=== PATIENT | female | born 1995 | race African-American/Black ===

== ENCOUNTER 2017-08-19 11:11 | Emergency (ER) | payer BC ==
[~2017-08-19] VITALS: Ht 154.9 cm; Wt 58.1 kg
[2017-08-19 11:15] VITALS: TEMP 36.9; Ht 154.9 cm; Wt 58.1 kg
[2017-08-19] MEDS ORDERED: SODIUM CHLORIDE 0.9% 1000ML 1,000 ML IV STA (11:21)
--- NOTE | 2017-08-19 11:22 | EMERGENCY ROOM VISIT NOTE ---
History Report prepared by [place]on: Valeriano Mendoza Under the Supervision of: Dr. Hudson Morales M.D. First contact with patient: 11:12 Stated Complaint: BACK PAIN History of Present Illness The patient is a 22 year old female who presents to the Emergency Room via EMS with complaints of persistent back pain that started this morning. She states that she thinks she is dehydrated. The patient adds that she does not know when her last bowel movement was. She notes no history of abdominal surgeries, and still has her major abdominal organs. Per the nursing staff, the patient is on control but does not get her period because she takes her control continuously. The patient's mother noted that the patient has had pain like this before, and at that time the patient was constipated. The patient says that her mother knows that she is here, and does not need to be contacted. Source of History: patient, parent, nursing staff Onset: This morning Position: back Symptom Intensity: has had pain like this before Quality: other (thinks she is dehydated) Timing: other (persistent) Note: Associated symptoms: Pt thinks she is dehydrated. Does not know when last bowel movement was. Review of Systems See HPI for pertinent positives & negatives. A total of 10 systems reviewed and were otherwise negative. Past Medical & Surgical Medical Problems: (1) No chronic diseases present Family History No pertinent family history Social History Marital Status: single Housing Status: lives with roommate Occupation Status: [employer] student Current/Historical Medications Scheduled PRN Hydralazine HCl (Hydralazine HCl), 2 TAB PO DIRECTED PRN for Anxiety Allergies Coded Allergies: No Known Allergies (Unverified , 08/19/17) Physical Exam Vital Signs Date Time Temp Pulse Resp B/P (MAP) Pulse Ox O2 Delivery O2 Flow Rate FiO2 08/19/17 13:16 78 18 100/64 100 Room Air 08/19/17 12:38 69 16 100/63 100 Room Air 08/19/17 11:15 36.9 81 16 98/57 98 Room Air Physical Exam GENERAL: Patient is a healthy-appearing well-nourished 22 year old female. HEAD: Normocephalic atraumatic EYES: Ocular movements intact pupils equal and react to light OROPHARYNX mucous membranes are moist no exudates present no erythema or edema present NECK: Supple no nuchal rigidity CHEST: Good equal expansion LUNGS: Clear and equal to auscultation CARDIAC: Normal S1 and S2 ABDOMEN: Soft nontender no guarding BACK: No CVA tenderness EXTREMITIES: No pain upon palpation normal muscle strength in all groups no clubbing cyanosis or edema NEURO: Patient is following commands and answering questions appropriately. Alert and oriented x3 Cranial Nerves 2-12 grossly intact Medical Decision & Procedures ER Provider Diagnostic Interpretation: X-ray results as stated below per interpretation by me and the radiologist: PA CHEST RADIOGRAPH AND UPRIGHT AND SUPINE AP RADIOGRAPHS OF THE ABDOMEN CLINICAL HISTORY: Diffuse abdominal pain. COMPARISON STUDY: No previous studies for comparison. FINDINGS: Lung volumes are normal. Lungs are clear. No pneumothorax or pleural effusion is noted. Cardiac size is normal. Mediastinal contours are normal. There is no free air. Bowel gas pattern is normal. There is a moderate amount of stool within the colon. There is minimal stool within the rectum. IMPRESSION: 1. No free air or evidence of bowel obstruction. 2. Moderate amount of stool within the colon. 3. No acute cardiopulmonary findings. Electronically signed by: Mathew Brown M.D. 08/19/2017 12:20 PM Dictated Date/Time: 08/19/2017 12:20 PM Laboratory Results 08/19/17 11:40 Red Blood Count 4.56, Mean Corpuscular Volume 87.3, Mean Corpuscular Hemoglobin 30.3, Mean Corpuscular Hemoglobin Concent 34.7, Mean Platelet Volume 10.4, Neutrophils (%) (Auto) 63.8, Lymphocytes (%) (Auto) 24.4, Monocytes (%) (Auto) 9.4, Eosinophils (%) (Auto) 1.6, Basophils (%) (Auto) 0.4, Neutrophils # (Auto) 3.28, Lymphocytes # (Auto) 1.25, Monocytes # (Auto) 0.48, Eosinophils # (Auto) 0.08, Basophils # (Auto) 0.02 08/19/17 11:40 Test 08/19/17 11:40 08/19/17 12:30 White Blood Count 5.13 K/uL (4.8-10.8) Red Blood Count 4.56 M/uL (4.2-5.4) Hemoglobin 13.8 g/dL (12.0-16.0) Hematocrit 39.8 % (37-47) Mean Corpuscular Volume 87.3 fL (80-100) Mean Corpuscular Hemoglobin 30.3 pg (25-34) Mean Corpuscular Hemoglobin Concent 34.7 g/dl (32-36) Platelet Count 157 K/uL (130-400) Mean Platelet Volume 10.4 fL (7.4-10.4) Neutrophils (%) (Auto) 63.8 % Lymphocytes (%) (Auto) 24.4 % Monocytes (%) (Auto) 9.4 % Eosinophils (%) (Auto) 1.6 % Basophils (%) (Auto) 0.4 % Neutrophils # (Auto) 3.28 K/uL (1.4-6.5) Lymphocytes # (Auto) 1.25 K/uL (1.2-3.4) Monocytes # (Auto) 0.48 K/uL (0.11-0.59) Eosinophils # (Auto) 0.08 K/uL (0-0.5) Basophils # (Auto) 0.02 K/uL (0-0.2) RDW Standard Deviation 40.4 fL (36.4-46.3) RDW Coefficient of Variation 12.6 % (11.5-14.5) Immature Granulocyte % (Auto) 0.4 % Immature Granulocyte # (Auto) 0.02 K/uL (0.00-0.02) Anion Gap 8.0 mmol/L (3-11) Est Creatinine Clear Calc Drug Dose 100.4 ml/min Estimated GFR () 137.8 Estimated GFR (Non- 118.9 BUN/Creatinine Ratio 12.0 (10-20) Calcium Level 8.9 mg/dl (8.5-10.1) Total Bilirubin 0.3 mg/dl (0.2-1) Direct Bilirubin mg/dl (0-0.2) Aspartate Amino Transf (AST/SGOT) U/L (15-37) Alanine Aminotransferase (ALT/SGPT) 48 U/L (12-78) Alkaline Phosphatase 42 U/L (45-117) Total Protein 7.2 gm/dl (6.4-8.2) Albumin 3.7 gm/dl (3.4-5.0) Thyroid Stimulating Hormone (TSH) 0.651 uIu/ml (0.300-4.500) Urine Color YELLOW Urine Appearance CLEAR (CLEAR) Urine pH 6.5 (4.5-7.5) Urine Specific [place] 1.017 (1.000-1.030) Urine Protein NEG (NEG) Urine Glucose (UA) NEG (NEG) Urine Ketones NEG (NEG) Urine Occult Blood NEG (NEG) Urine Nitrite NEG (NEG) Urine Bilirubin NEG (NEG) Urine Urobilinogen NEG (NEG) Urine Leukocyte Esterase NEG (NEG) Urine Test NEG (NEG) Labs reviewed by ED physician. Medications Administered Medications (Trade) Dose Ordered Sig/[place] Route Start Time Stop Time Status Last Admin Dose Admin Sodium Chloride 1,000 ml @ 999 mls/hr Q1H1M STAT IV 08/19/17 11:21 08/19/17 12:21 DC 08/19/17 11:21 999 MLS/HR Magnesium Citrate (Citrate Of Magnesia Soln) 296 ml NOW STAT PO 08/19/17 13:05 08/19/17 13:06 DC 08/19/17 13:17 296 ML ECG Per My Interpretation Indication: other (dehydration) Rate (beats per minute): 70 Rhythm: normal sinus Findings: other (normal EKG, no ST elevation or depressions) ED Course 1115: Past medical records reviewed. The patient was evaluated in room B10. A complete history and physical examination was performed. 1121: Ordered NSS 1000 ml @ 999 mls/hr IV. 1300: Upon reexamination the patient is resting comfortably. I discussed results and treatment plan with the patient. She verbalizes agreement and understanding. The patient is ready for discharge. 1305: Ordered Citrate of Magnesia Soln 296 ml PO. Medical Decision Differential diagnosis: Etiologies such as musculoskeletal, disc herniation, fracture, aortic disease, metastatic disease, cord compression, discitis, infection, renal colic, gastrointestinal, acute exacerbation of chronic back pain, sciatica, cauda equina, as well as others were entertained. This is a 22-year-old female who presents emergency department complaining of back pain" patient. Serial abdominal examinations were performed of the patient emergency department no tended patient exhibit surgical. In addition the patient has a normal white blood cell count profile liver profile normal lipase. She is not she has no evidence of urinary tract infection and laboratory work. I did offer discussed this patient with her mother however the patient declined given normal saline bolus in the emergency department citrate. Patient was in agreement with the treatment plan. Medication Reconcilliation Current Medication List: was personally reviewed by me Blood Pressure Screening Patient's blood pressure: Normal blood pressure Impression Primary Impression: Constipation Scribe Attestation The scribe's documentation has been prepared under my direction and personally reviewed by me in its entirety. I confirm that the note above accurately reflects all work, treatment, procedures, and medical decision making performed by me. Departure Information Dispostion Home / Self-Care Referrals [facility] Forms HOME CARE DOCUMENTATION FORM, IMPORTANT VISIT INFORMATION, School Instructions, Work Instructions Patient Instructions ED Constipation, My [facility] Additional Instructions Take 1/2 bottle of Mag Citrate Repeat second half in six hours You have been examined and treated today on an emergency basis only. This is not a substitute for, or an effort to provide, complete comprehensive medical care. It is impossible to recognize and treat all injuries or illnesses in a single emergency department visit. It is therefore important that you follow up closely with [facility]. Call as soon as possible for an appointment. Thank you for your time and consideration. I look forward to speaking with you again soon. Please don't hesitate to call us if you have any questions. Problem Qualifiers Primary Impression: Constipation Constipation type: unspecified constipation type Qualified Codes: K59.00 - Constipation, unspecified
[2017-08-19] MEDS ORDERED: HYDR-2977 PO (11:27)
[2017-08-19 11:58] LABS: BASO % 0.4 %; BASO ABS # 0.02 K/uL (0-0.2); EOS % 1.6 %; EOS ABS # 0.08 K/uL (0-0.5); HEMATOCRIT 39.8 % (37-47); HEMOGLOBIN 13.8 g/dL (12.0-16.0); IG# 0.02 K/uL (0.00-0.02); LYMPH % 24.4 %; LYMPH ABS # 1.25 K/uL (1.2-3.4); MEAN CELL VOLUME 87.3 fL (80-100); MEAN CORPUSCULAR HEMOGLOBIN 30.3 pg (25-34); MEAN CORPUSCULAR HGB CONC 34.7 g/dl (32-36); MEAN PLATELET VOLUME 10.4 fL (7.4-10.4); MONO % 9.4 %; MONO ABS # 0.48 K/uL (0.11-0.59); NEUT % 63.8 %; NEUT ABS # 3.28 K/uL (1.4-6.5); PLATELET COUNT 157 K/uL (130-400); RED CELL DISTRIBUTION WIDTH CV 12.6 % (11.5-14.5); RED CELL DISTRIBUTION WIDTH SD 40.4 fL (36.4-46.3); WHITE BLOOD COUNT 5.13 K/uL (4.8-10.8)
--- NOTE | 2017-08-19 12:22 | DIAGNOSTIC IMAGING REPORT ---
PA CHEST RADIOGRAPH AND UPRIGHT AND SUPINE AP RADIOGRAPHS OF THE ABDOMEN CLINICAL HISTORY: Diffuse abdominal pain. COMPARISON STUDY: No previous studies for comparison. FINDINGS: Lung volumes are normal. Lungs are clear. No pneumothorax or pleural effusion is noted. Cardiac size is normal. Mediastinal contours are normal. There is no free air. Bowel gas pattern is normal. There is a moderate amount of stool within the colon. There is minimal stool within the rectum. IMPRESSION: 1. No free air or evidence of bowel obstruction. 2. Moderate amount of stool within the colon. 3. No acute cardiopulmonary findings. Electronically signed by: Mathew Brown M.D. 08/19/2017 12:20 PM Dictated Date/Time: 08/19/2017 12:20 PM
[2017-08-19 12:24] LABS: ALBUMIN 3.7 gm/dl (3.4-5.0); CALCIUM 8.9 mg/dl (8.5-10.1); CREATININE 0.72 mg/dl (0.60-1.20)
[2017-08-19 12:34] LABS: TOTAL PROTEIN 7.2 gm/dl (6.4-8.2)
[2017-08-19] MEDS ORDERED: MAGNESIUM CITRATE 296 ML/BTL PO STA (13:05)
[2017-08-19 13:16] VITALS: BP 100/64; PULSE 78; O2SAT 100
== END 2017-08-19 13:23 | disposition home or self-care (01) ==
LOC: EDBD 11:11 → C.EDB 11:14
DX: K59.00 Constipation, unspecified (principal); M54.9 Dorsalgia, unspecified; Z79.3 Long term (current) use of hormonal contraceptives